=== PATIENT | female | born 1970 | race African-American/Black ===

== ENCOUNTER 2016-09-28 09:17 | Emergency (ER) | payer OTHER ==
[2016-09-28 09:22] VITALS: TEMP 98.1; BMI 32.5
[2016-09-28] MEDS ORDERED: KETOROLAC TROMETHAMINE 60 MG/2 ML VIAL IM ONE (10:05)
[2016-09-28] MEDS ORDERED: KETOROLAC TROMETHAMINE 60 MG/2 ML VIAL ONE (10:06)
--- NOTE | 2016-09-28 10:37 | PDOC ---
History of Present Illness - General Chief Complaint: Pain, Acute Stated Complaint: LOW BACK PAIN Time Seen by Provider: 09/28/16 09:20 History Source: Patient Exam Limitations: No Limitations - History of Present Illness Initial Comments: 09/28/16 10:37 This is a 46-year-old female with a history of diet-controlled diabetes, chronic back pain, status post lumbar laminectomy and fusion, status post nerve root stimulator who presents to the ER with a complaint of lower back pain Symptoms began two days ago No trauma No falls No heavy lifting No fevers or chills No history of IVDU No known history of cancer Pt's pain is rated 10/10 With movement, pain worsens Pain is sharp, located in the entire left back No radiation down the back of the leg No numbness or tingling PMH: diet controlled diabetes PSH: Laminectomy Meds: OTC medications ALL: NKDA Social: denies IVDU, cigarette use occasionally Constitutional: Yes: Weight Stable. No: Fever, Night Sweats HEENTM: No: Recent change in vision, Nose Bleeding, Dental Problems, Difficulty Swallowing Respiratory: No: Cough, Shortness of Breath, Wheezing Cardiac (ROS): No: Chest Pain, Edema, Palpitations, Syncope ABD/GI: No: Diarrhea, Nausea, Vomiting : No: Dysuria, Frequency, Lesions Musculoskeletal: Yes: Muscle Pain. No: Joint Pain, Muscle Weakness Integumentary: No: Rash, Bruising Neurological: Yes: Numbness, Paresthesia, Tingling. No: Headache, Seizure Psychiatric: No: Depression, Frequent Crying, Change in Appetite Endocrine: No: Increased Thirst, Change in Weight (Unexplained) Hematologic/Lymphatic: No: Bleeding Diathesis, Lymph Node Abnormalities All Other Systems: Reviewed and Negative General Appearance: positive: [id number] HEENT: positive: EOMI, JOANA, Symmetrical, Orbits (normal), Other (Mouth: Mucous Membrane normal w/o lesions. ). negative: Tonsillar Exudate, Tonsillar Erythema , Rhinorrhea, Sinus Tenderness, Lesions, Arnett Neck: positive: Non-tender, Supple, Other (Full ROM ). negative: Non-rigid Respiratory/Chest: positive: Lungs Clear (to A+P; equal bilateally). negative: Dullness Cardiovascular: positive: Regular Rhythm, Regular Rate, S1, S2 Vascular Pulses: Femoral (R): 4+, Femoral (L): 4+, Carotid (R): 4+, Carotid (L) : 4+, Dorsalis-Pedis (R): 4+, Doralis-Pedis (L): 4+ Gastrointestinal/Abdominal: positive: Non Tender, Soft, Other (No CVAT). negative: Pulsatile Mass, Guarding, Tenderness (Rebound), Hepatomegaly, Spleenomegaly Lymphatic: positive: Adenopathy Musculoskeletal: (+) left SI joint tenderness . negative: CVA Tenderness (R), CVA Tenderness (L) Integumentary: positive: Normal Color. negative: Erythema, Petechiae, Rash Neurologic: positive: mobile development manager II-XII NML intact, Fully Oriented, Alert, Motor Strength 5/5, Other (there is pain with straight leg however pt does have full strength and sensory in perinium as well as extremity) 09/28/16 10:48 Past History - Past Medical History Allergies/Adverse Reactions: Allergies Allergy/AdvReac Type Severity Reaction Status Date / Time No Known Allergies Allergy Verified 09/28/16 09:18 Home Medications: Ambulatory Orders Lidocaine 5% Patch [Lidoderm Patch -] 1 patch TP DAILY PRN #30 patch 09/28/16 Methocarbamol [Robaxin -] 500 mg PO TID PRN #30 tablet 09/28/16 Naproxen [Naprosyn -] 500 mg PO BID PRN #14 tablet 09/28/16 Oxycodone HCl/Acetaminophen [Percocet 5-325 mg Tablet -] 1 tab PO Q6H PRN #12 tablet MDD 4 09/28/16 Diabetes: Yes (DIET CONTROL) HTN: Yes - Immunization History Td Vaccination: Yes Immunization Up to Date: Yes - Psycho/Social/Smoking Cessation Hx Anxiety: No Suicidal Ideation: No Smoking Status: Yes Smoking History: Current every day smoker Number of Cigarettes Smoked Daily: 2 Information on smoking cessation initiated: Yes 'Breaking Loose' booklet given: 09/28/16 Hx Alcohol Use: Yes Drug/Substance Use Hx: No Substance Use Type: Alcohol *Physical Exam - Vital Signs Last Vital Signs Temp Pulse Resp BP Pulse Ox 98.1 F 89 18 153/103 96 09/28/16 09:18 09/28/16 09:18 09/28/16 09:18 09/28/16 09:18 09/28/16 09:18 Medical Decision Making - Medical Decision Making 09/28/16 10:[address] Vasquez Pt can have a CT (she is not able to have an MRI given Stimulator) to R/O significant stenosis Given Toradol now 09/28/16 12:49 CT demonstrates: multi level degenerative disease, Central stenosis, Disc herniation [id number] Will discharge to home Pt asked to follow up with Dr Vasquez next week Return to the ER immediately for worsening symptoms Pt given pain medications Clinical impression: Spinal stenosis, degenerative disease, Disc herniation I discussed the physical exam findings, ancillary test results and final diagnoses with the patient. I answered all of the patient's questions. The patient was satisfied with the care received and felt comfortable with the discharge plan and treatment plan. The patient will call their primary care physician within 24 hours to arrange follow-up and will return to the Emergency Department with any new, persistent or worsening symptoms. *DC/Admit/Observation/Transfer Diagnosis at time of Disposition: Back pain Qualifiers: Back pain location: low back pain Chronicity: chronic Back pain laterality: left Sciatica presence: without sciatica Qualified Code(s): M54.5 - Low back pain Disc herniation Qualifiers: Spinal region: thoracolumbar Qualified Code(s): M51.25 - Other intervertebral disc displacement, thoracolumbar region - Discharge Dispostion Disposition: HOME Condition at time of disposition: Stable Admit: No - Prescriptions Prescriptions: Lidocaine 5% Patch [Lidoderm Patch -] 1 patch TP DAILY PRN #30 patch PRN Reason: Pain Naproxen [Naprosyn -] 500 mg PO BID PRN #14 tablet PRN Reason: Pain Oxycodone HCl/Acetaminophen [Percocet 5-325 mg Tablet -] 1 tab PO Q6H PRN #12 tablet MDD 4 PRN Reason: Severe Pain Methocarbamol [Robaxin -] 500 mg PO TID PRN #30 tablet PRN Reason: Lower Back Pain - Referrals Referrals: Kilo Vasquez MD [Staff Physician] - Tish Doyle MD [Staff Physician] - - Patient Instructions Printed Discharge Instructions: DI for Low Back Pain, DI for Back Pain With Sciatica, DI for Herniated Disc, Spinal Stenosis - Post Discharge Activity Work/School Note: Back to Work
[2016-09-28 11:16] LABS: PH,URINE 5.5 (4.5-8); URINE BILIRUBIN Negative (NEGATIVE); URINE GLUCOSE (UA) Negative (NEGATIVE); URINE KETONE Negative (NEGATIVE); URINE LEUK ESTERASE Negative (NEGATIVE); URINE NITRITE Negative (NEGATIVE); URINE PROTEIN Negative (NEGATIVE); URINE UROBILINOGEN 0.2 E.U/dl (0.2-1.0)
[2016-09-28 11:17] LABS: URINE BLOOD 1+ (NEGATIVE)
[2016-09-28 11:18] LABS: URINE APPEARANCE SL CLOUDY; URINE COLOR YELLOW
[2016-09-28 13:04] VITALS: BP 160/101; PULSE 76
== END 2016-09-28 13:07 | disposition home or self-care (01) ==
LOC: FER 09:17
PROC: 3E0233Z Introduction of Anti-inflammatory into Muscle, Percutaneous Approach (ICD-10-PCS; principal; 2016-09-28)
DX: M51.25 Other intervertebral disc displacement, thoracolumbar region (principal); I10 Essential (primary) hypertension; G89.29 Other chronic pain; Z72.0 Tobacco use
CPT/HCPCS: 72131-TC; 81003; 84703; 96372; 99282-25

== ENCOUNTER 2016-11-01 11:00 | Emergency (ER) | payer OTHER ==
[2016-11-01 11:20] VITALS: BP 155/100; PULSE 88; TEMP 98.5; BMI 32.5
[2016-11-01] MEDS ORDERED: ALBUTEROL SO4 2.5/IPRATROPIUM 0.5 INH SOL 3 ML VIAL.NEB. NEB ONE ×4 (11:55→15:00)
[2016-11-01] MEDS ORDERED: predniSONE 20 MG TABLET (UD) PO ONE (11:56)
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
[2016-11-01] MEDS ORDERED: predniSONE 20 MG TABLET (UD) ONE (12:17)
== END 2016-11-01 16:00 | disposition home or self-care (01) ==
LOC: FER 11:00
PROC: 3E0F7GC Introduction of Other Therapeutic Substance into Respiratory Tract, Via Natural or Artificial Opening (ICD-10-PCS; principal; 2016-11-01)
DX: J68.9 Unspecified respiratory condition due to chemicals, gases, fumes and vapors (principal); J45.901 Unspecified asthma with (acute) exacerbation; I10 Essential (primary) hypertension; Z72.0 Tobacco use; E78.5 Hyperlipidemia, unspecified; X58.XXXA Exposure to other specified factors, initial encounter; Y93.89 Activity, other specified; Y92.89 Other specified places as the place of occurrence of the external cause; Y99.0 Civilian activity done for income or pay
CPT/HCPCS: 71020-TC; 99281-25

== ENCOUNTER 2016-11-18 17:34 | Emergency (ER) | payer OTHER ==
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
[2016-11-18] MEDS ORDERED: ALBUTEROL SO4 2.5/IPRATROPIUM 0.5 INH SOL 3 ML VIAL.NEB. NEB ONE ×2 (17:45→17:49)
[2016-11-18] MEDS ORDERED: predniSONE 20 MG TABLET (UD) PO ONE (17:45)
[2016-11-18] MEDS ORDERED: predniSONE 20 MG TABLET (UD) ONE (17:49)
[2016-11-18 17:51] VITALS: BP 186/110; PULSE 88; TEMP 98.5; BMI 32.5
== END 2016-11-18 18:21 | disposition home or self-care (01) ==
LOC: FER 17:34
DX: J01.00 Acute maxillary sinusitis, unspecified (principal); J45.30 Mild persistent asthma, uncomplicated; I10 Essential (primary) hypertension; E78.5 Hyperlipidemia, unspecified; F17.210 Nicotine dependence, cigarettes, uncomplicated
CPT/HCPCS: 99282-25

== ENCOUNTER 2022-02-21 04:03 | Day surgery (SDC) | payer OTHER ==
[2022-02-19 11:15] VITALS: BMI 37.2
[2022-02-21] MEDS ORDERED: LIDOCAINE HCL 1%, 10 MG/ML (20ML VIAL) ONE (07:12)
[2022-02-21] MEDS ORDERED: MIDAZOLAM HCL 2 MG/2 ML SINGLE DOSE VIAL ONE (07:27)
[2022-02-21] MEDS ORDERED: PROPOFOL 20 ML ONE ×4 (07:27→09:33)
[2022-02-21] MEDS ORDERED: KETAMINE HCL 200 MG/20 ML VIAL ONE (07:28)
[2022-02-21] MEDS ORDERED: DEXMEDETOMIDINE HCL 200 MCG/2 ML IVPB ONE (07:36)
[2022-02-21] MEDS ORDERED: SUGAMMADEX SODIUM 200 MG/2 ML VIAL ONE (08:06)
[2022-02-21] MEDS ORDERED: ROCURONIUM BROMIDE 50 MG/5 ML SYRINGE ONE (08:17)
[2022-02-21] MEDS ORDERED: ceFAZolin SODIUM 1 GM VIAL IVPB ONE ×2 (09:00→09:20)
[2022-02-21] MEDS ORDERED: VANCOMYCIN 1 GM in NS (PRE-DOCKED) 1,000 MG/250 ML IVPB ONE (09:25)
[2022-02-21] MEDS ORDERED: VANCOMYCIN 1,000 MG VIAL (RESTRICTED TO ID ONLY) ONE (09:27)
[2022-02-21] MEDS ORDERED: SUCCINYLCHOLINE CHLORIDE 200 MG/10 ML SYRINGE ONE (09:37)
[2022-02-21] MEDS ORDERED: ACETAMINOPHEN INJECTION 100 ML IVPB ONE (09:39)
[2022-02-21] MEDS ORDERED: LIDOCAINE HCL 1%, 10 MG/ML (20ML VIAL) NR ONE (09:48)
[2022-02-21] MEDS ORDERED: BACITRACIN 15 GM TUBE TOPICAL OINTMENT ONE (10:03)
[2022-02-21] MEDS ORDERED: ONDANSETRON 4 MG/2 ML VIAL IVPUSH PRN (10:16)
[2022-02-21] MEDS ORDERED: oxyCODONE HCL 5 MG TABLET PO PRN (10:16)
[2022-02-21] MEDS ORDERED: HYDROmorphone HCL CARPU-JECT 2 MG/1 ML DISP.SYRIN IVPUSH PRN (10:18)
[2022-02-21] MEDS ORDERED: D5-1/2NS+20 MEQ KCL - 20 MEQ/1,000 ML INFUS.BAG IV SCH (10:30)
[2022-02-21] MEDS ORDERED: CEFAZOLIN 1 GM/D5W 1 GM/50 ML BAG IVPB ONE (13:00)
[2022-02-21 13:48] VITALS: BP 109/53; PULSE 74; TEMP 98
== END 2022-02-21 14:05 | disposition home or self-care (01) ==
LOC: JASUSAT 04:03
PROVIDERS: ATTEND Neurological Surgery
PROC: 0JPT0MZ Removal of Stimulator Generator from Trunk Subcutaneous Tissue and Fascia, Open Approach (ICD-10-PCS; 2022-02-21)
PROC: 00PU0MZ Removal of Neurostimulator Lead from Spinal Canal, Open Approach (ICD-10-PCS; principal; 2022-02-21 08:00)
DX: M96.1 Postlaminectomy syndrome, not elsewhere classified (principal); Z45.42 Encounter for adjustment and management of neurostimulator
CPT/HCPCS: 76000-TC-FY; 88300-TC; 94760